=== PATIENT | male | born 1955 | race Caucasian/White ===

== ENCOUNTER 2021-11-01 18:04 | Inpatient (IN) ==
[2021-11-01] MEDS ORDERED: Lactated Ringers 1000 ml BAG 1,000 ML IV ONE (18:47)
[2021-11-01 18:57] LABS: Hematocrit 40 % (42-52); Hemoglobin 13.1 g/dL (14.0-18.0); Mean Corpuscular HGB Conc 33 g/dL (31-36); Mean Corpuscular Hemoglobin 34 pg (27-31); Mean Corpuscular Volume 102 fL (80-94); Mean Platelet Volume 7.6 fL (7.4-10.4); Platelet Count 79 10^3/uL (150-450); Red Blood Count 3.89 10^6 /uL (4.18-5.48); Red Cell Distribution Width 22 % (10-15); White Blood Count 6.9 10^3/uL (3.5-10.8)
[2021-11-01] MEDS ORDERED: Vancomycin 1,000 MG in NS 0.9% 250 ml 250 ML IVPB ONE ×2 (19:00→20:57)
[2021-11-01] MEDS ORDERED: Cefepime 1 GM in Dextrose 1 GM/50 ML BAG IV ONE (19:00)
[2021-11-01 19:11] LABS: ALT 61 U/L (7-52); AST 35 U/L (13-39); Albumin 2.6 g/dL (3.2-5.2); Albumin/Globulin Ratio 1.3 (1-3); Alkaline Phosphatase 60 U/L (35-149); Anion Gap 11 mmol/L (2-11); Blood Urea Nitrogen 31 mg/dL (6-24); C Reactive Protein 14.38 mg/L (<8.01); CO2 Carbon Dioxide 26 mmol/L (22-32); Chloride 106 mmol/L (101-111); Creatine Kinase 20 U/L (10-223); Glucose 122 mg/dL (70-100); Potassium 4.4 mmol/L (3.5-5.0); Sodium 143 mmol/L (135-145); Total Protein 4.6 g/dL (6.4-8.9); eGFR CKD-EPI 95.2 (>60)
[2021-11-01 19:20] LABS: Activated Partial Thrombo Time 24.1 seconds (26.0-38.0); INR 1.1 (0.86-1.15); Troponin I 0.05 ng/mL (<0.03)
[2021-11-01 19:22] LABS: Urine Appearance Cloudy; Urine Bilirubin Negative (Negative); Urine Blood 2+ (Negative); Urine Color Amber; Urine Glucose Negative (Negative); Urine Ketones Negative (Negative); Urine Nitrite Negative (Negative); Urine Protein 1+(30 mg/dL) (Negative); Urine Specific Gravity 1.017 (1.002-1.030); Urine Urobilinogen Negative (Negative)
[2021-11-01] MEDS ORDERED: Iodixanol (CONTRAST) 320 MG/ML 100 ML SDV IV ONE (19:30)
[2021-11-01 19:36] LABS: Urine Bacteria Absent (Absent); Urine Red Blood Cell 2+(6-10/hpf) (Absent); Urine Squamous Epithelial Cell Present (Absent); Urine White Blood Cell Trace(0-5/hpf) (Absent)
[2021-11-01] MEDS: Lactated Ringers 1000 ml BAG 1,000 ML IV ONE (19:39)
[2021-11-01] MEDS ORDERED: Pantoprazole VIAL 40 MG VIAL IV ONE (19:54)
[2021-11-01 20:05] LABS: PCO2 Arterial 42 mmHg (35-45); PO2 Arterial 64 mmHg (80-100)
[2021-11-01 20:24] LABS: ABS Lymphocytes 0.9 10^3/ul (1.0-4.8); ABS Monocytes 0.2 10^3/ul (0-0.8); ABS Neutrophils 5.8 10^3/ul (1.5-7.7); ABS Nucleated RBC 0.5 10^3/ul; Lymphocyte % 13.1 %; Nucleated Red Blood Cells % 6.8
[2021-11-01 20:32] LABS: Anisocytosis 2+; Polychromasia 2+
[2021-11-01] MEDS ORDERED: Acetaminophen IV 1 GM/100ML 100 ML IV PRN (20:57)
[2021-11-01] MEDS ORDERED: Ondansetron 4 mg VIAL 2 MG/ML 2 ml VIAL IV PRN (20:57)
[2021-11-01] MEDS ORDERED: Vancomycin per Pharmacy 1 EA NOTE FOLLOW UP SCH (21:00)
[2021-11-01] MEDS ORDERED: PHENYLEPHRINE DRIP IVPREMIX 50 MG/250 ML BAG IV SCH (21:00)
[2021-11-01] MEDS ORDERED: Lactated Ringers 1000 ml BAG 1,000 ML IV SCH (21:00)
[2021-11-01] MEDS ORDERED: LORazepam 2 mg VIAL 1 ml IV PUSH PRN (21:47)
[2021-11-01] MEDS ORDERED: Lorazepam PYXIS KEY PRN (21:47)
[2021-11-01] MEDS ORDERED: Atropine 1% (ORAL/SL) 15 ML BTL SL PRN (21:47)
[2021-11-01] MEDS ORDERED: Cefepime 1 GM IV - ED ONCE IV ONE (22:00)
[2021-11-01] MEDS ORDERED: metroNIDAZOLE IV 500 MG/100ML - ED ONCE IVPB ONE (22:00)
[2021-11-01] MEDS ORDERED: levETIRAcetam 1000MG IVPREMIX 1,000 MG/100 ML BAG IVPB SCH ×2 (22:00)
[2021-11-01] MEDS ORDERED: levETIRAcetam IV 250 MG in NS 0.9% 100 ml BAG 100 ML IVPB SCH (22:00)
[2021-11-02] MEDS ORDERED: levETIRAcetam IV 1,250 MG in NS 0.9% 100 ml BAG 100 ML IVPB SCH
[2021-11-02 02:13] VITALS: BP 00/00
[2021-11-02] MEDS ORDERED: metroNIDAZOLE IV 500 MG/100ML 500 MG/100 ML BAG IVPB SCH (06:00)
[2021-11-02] MEDS ORDERED: Cefepime 2 GM in Dextrose 2 GM/50 ML BAG IV SCH (10:00)
== END 2021-11-02 02:05 | disposition expired | DRG 871 ==
LOC: ED 18:04 → EDHOLD 20:53 → MED 11-02 02:20
PROVIDERS: ADMIT Internal Medicine; ATTEND Internal Medicine